=== PATIENT | female | born 1985 | race African-American/Black ===

== ENCOUNTER 2016-06-24 05:29 | Emergency (ER) | payer OTHER ==
[~2016-06-24] VITALS: Ht 167.6 cm; Wt 104.0 kg
[~2016-06-24 05:29] MED LIST: ACET325T14 PO; CEFD300C2 PO; ONDA4TAB10 PO; SUMA25TA3 PO
[2016-06-24 05:30] VITALS: BP 135/84
[2016-06-24] MEDS ORDERED: OXYcodone/APAP 5/325MG TABLET ONE (06:38)
[2016-06-24] MEDS ORDERED: OXYcodone/APAP 5/325MG TABLET PO ONE (07:00)
== END 2016-06-24 06:58 | disposition home or self-care (01) ==
LOC: ED 06:01
DX: K01.1 Impacted teeth (principal); K08.9 Disorder of teeth and supporting structures, unspecified; J45.909 Unspecified asthma, uncomplicated
CPT/HCPCS: 99283

== ENCOUNTER 2017-01-18 09:29 | Emergency (ER) | payer OTHER ==
[~2017-01-18] VITALS: Ht 165.1 cm; Wt 97.4 kg
[~2017-01-18 09:29] MED LIST changes: -CEFD300C2 PO; +CEFD300C37 PO
[2017-01-18] MEDS ORDERED: DIPHENHYDRAMINE 50 MG/ML, 1ML IVPush ONE (10:00)
[2017-01-18] MEDS ORDERED: KETOROLAC 30 MG/1 ML ONE (10:36)
[2017-01-18] MEDS ORDERED: DIPHENHYDRAMINE 50 MG/ML, 1ML ONE (10:37)
[2017-01-18] MEDS ORDERED: METOCLOPRAMIDE 5 MG/ML, 2ML ONE (10:37)
[2017-01-18] MEDS ORDERED: PREN1TAB60 PO (10:49)
[2017-01-18] MEDS ORDERED: KETOROLAC 30 MG/1 ML IVPush ONE (11:00)
[2017-01-18] MEDS ORDERED: SODIUM CHLORIDE FLUSH 10ML SYR IVF ONE (11:00)
[2017-01-18] MEDS ORDERED: SODIUM CHLORIDE 0.9% 1,000ML IVBOLUS ONE (11:00)
[2017-01-18] MEDS ORDERED: METOCLOPRAMIDE 5 MG/ML, 2ML IVPush ONE (11:00)
[2017-01-18] MEDS ORDERED: morphine SULFATE 10 MG/ML, 1ML IVPush ONE ×2 (11:30→12:00)
[2017-01-18] MEDS ORDERED: MORPHINE SULFATE 4 MG/ML, 1ML ONE (11:48)
[2017-01-18 12:19] VITALS: BP 91/64
== END 2017-01-18 12:40 | disposition home or self-care (01) ==
LOC: ED 12:20
DX: G43.909 Migraine, unspecified, not intractable, without status migrainosus (principal); J20.8 Acute bronchitis due to other specified organisms; B96.89 Other specified bacterial agents as the cause of diseases classified elsewhere; J00 Acute nasopharyngitis [common cold]; F17.210 Nicotine dependence, cigarettes, uncomplicated; J45.909 Unspecified asthma, uncomplicated; G89.29 Other chronic pain
CPT/HCPCS: 71020; 96361; 96374; 96375; 99284; J1200; J1885; J2270; J2765; J7030

== ENCOUNTER 2017-01-30 02:02 | Emergency (ER) | payer OTHER ==
[~2017-01-30] VITALS: Ht 165.1 cm; Wt 96.4 kg
[~2017-01-30 02:02] MED LIST changes: +PREN1TAB60 PO
[2017-01-30] MEDS ORDERED: DIAZEPAM 5 MG TABLET ONE (02:45)
[2017-01-30] MEDS ORDERED: KETOROLAC 30 MG/1 ML ONE (02:45)
[2017-01-30] MEDS ORDERED: DIAZEPAM 5 MG TABLET PO ONE (03:00)
[2017-01-30] MEDS ORDERED: KETOROLAC 30 MG/1 ML IM ONE (03:00)
[2017-01-30] MEDS ORDERED: DEXAMETHASONE 4 MG TABLET PO ONE (03:30)
[2017-01-30] MEDS ORDERED: DEXAMETHASONE 4 MG TABLET ONE (03:39)
[2017-01-30 03:51] VITALS: BP 139/87
== END 2017-01-30 04:28 | disposition home or self-care (01) ==
LOC: ED 02:46
DX: M54.5 Low back pain (principal); G89.29 Other chronic pain; J45.909 Unspecified asthma, uncomplicated; G43.909 Migraine, unspecified, not intractable, without status migrainosus
CPT/HCPCS: 93005; 96372; 99283; J1885

== ENCOUNTER 2017-03-25 07:06 | Emergency (ER) | payer OTHER ==
[~2017-03-25] VITALS: Ht 165.1 cm; Wt 101.0 kg
[2017-03-25 08:59] VITALS: BP 121/68
== END 2017-03-25 09:07 | disposition home or self-care (01) ==
LOC: ED 08:22
DX: J20.9 Acute bronchitis, unspecified (principal); B96.89 Other specified bacterial agents as the cause of diseases classified elsewhere; J45.909 Unspecified asthma, uncomplicated
CPT/HCPCS: 71020; 99284

== ENCOUNTER 2018-06-14 00:17 | Emergency (ER) | payer BC ==
[~2018-06-14] VITALS: Ht 165.1 cm; Wt 109.4 kg
--- NOTE | 2018-06-14 00:34 | NUR ---
Dr. Yao at bedside to evaluate pt.
--- NOTE | 2018-06-14 00:54 | NUR ---
Pt back to room from imaging, lab at bedside.
[2018-06-14 01:07] LABS: BASOPHILS # (AUTO) 0.15 x10^3/uL (0-0.1); BASOPHILS % (AUTO) 2 % (0-1); EOSINOPHILS # (AUTO) 0.13 x10^3/uL (0-0.4); EOSINOPHILS % (AUTO) 2 % (1-7); LYMPHOCYTES # (AUTO) 3.55 x10^3/uL (1-3.4); LYMPHOCYTES % (AUTO) 42 % (22-44); MD NO; MEAN CORPUSCULAR HEMOGLOBIN 30.4 pg (27.0-34.8); MEAN CORPUSCULAR HGB CONC 33.9 g/dL (32.4-35.8); MEAN CORPUSCULAR VOLUME 89.8 fL (80-100); MEAN PLATELET VOLUME 8.1 fL (7.4-10.4); MONOCYTES # (AUTO) 0.58 x10^3/uL (0.2-0.8); MONOCYTES % (AUTO) 7 % (2-9); NEUTROPHILS # (AUTO) 4.05 x10^3/uL (1.8-6.8); NEUTROPHILS % (AUTO) 48 % (42-75); PLATELET COUNT 313 x10^3/uL (130-400); RED BLOOD COUNT 4.96 x10^6/uL (3.82-5.3)
[2018-06-14 01:14] LABS: ALANINE AMINOTRANSFERASE 22 U/L (12-78); ALBUMIN 3.4 g/dL (3.4-5.0); ANION GAP 6 mmol/L (5-15); CALCIUM 8.8 mg/dL (8.5-10.1); CHLORIDE 112 mmol/L (98-107); CREATININE 0.93 mg/dL (0.55-1.02)
[2018-06-14 01:19] LABS: ALKALINE PHOSPHATASE 84 U/L (45-117); BILIRUBIN,TOTAL 0.3 mg/dL (0.2-1.0); TOTAL PROTEIN 7.2 g/dL (6.4-8.2)
[2018-06-14 02:04] VITALS: BP 112/64
--- NOTE | 2018-06-14 02:05 | NUR ---
Patient/Caregiver given discharge instructions and they have confirmed that they understand the instructions. Patient ambulatory with steady gait.
== END 2018-06-14 02:06 | disposition home or self-care (01) ==
LOC: ED 01:13
DX: S06.0X1A Concussion with loss of consciousness of 30 minutes or less, initial encounter (principal); G43.909 Migraine, unspecified, not intractable, without status migrainosus; X58.XXXA Exposure to other specified factors, initial encounter; Y93.89 Activity, other specified; Y92.89 Other specified places as the place of occurrence of the external cause; Y99.8 Other external cause status
CPT/HCPCS: 36415; 70450; 80053; 83690; 84703; 85025; 93005; 99284